=== PATIENT | male | born 1975 | race Two or more races ===

== ENCOUNTER 2018-03-24 00:31 | Inpatient (IN) | payer OTHER ==
[~2018-03-24] VITALS: Ht 172.7 cm; Wt 90.7 kg
[~2018-03-24 00:31] MED LIST: COZAAR100 MG PO
[2018-04-07] MEDS ORDERED: AMLODIPINE BESYL5 MG PO (08:59)
[2018-04-07] MEDS ORDERED: LOSARTAN-HCTZ1 EAC2 PO (08:59)
[2018-04-07] MEDS ORDERED: CEPHALEXIN500 M1 PO (09:00)
== END 2018-04-07 11:02 | disposition home or self-care (01) | DRG 603 ==
LOC: ER 00:31 → SEC-K 08:38 → MEDJ 08:38
PROVIDERS: Orthopaedic Surgery Hand Surgery
PROC: BP3DYZZ Magnetic Resonance Imaging (MRI) of Left Hand/Finger Joint using Other Contrast (ICD-10-PCS; 2018-03-25)
PROC: 0J9K0ZX Drainage of Left Hand Subcutaneous Tissue and Fascia, Open Approach, Diagnostic (ICD-10-PCS; principal; 2018-03-30 16:00)
DX: L03.114 Cellulitis of left upper limb (principal); I10 Essential (primary) hypertension; S60.222A Contusion of left hand, initial encounter; X58.XXXA Exposure to other specified factors, initial encounter; Y93.89 Activity, other specified; Y92.89 Other specified places as the place of occurrence of the external cause; Y99.8 Other external cause status
CPT/HCPCS: 73218